=== PATIENT | female | born 1960 | race Caucasian/White ===

== ENCOUNTER 2017-08-20 10:57 | Emergency (ER) | payer OTHER, BC ==
[2017-08-20 11:21] VITALS: RESP 16; TEMP 98.2
[2017-08-20] MEDS ORDERED: ACETAMINOPHEN 500 MG 500 MG TAB PO ONE (11:32)
[2017-08-20] MEDS ORDERED: ACETAMINOPHEN 500 MG 500 MG TAB ONE (11:34)
[2017-08-20] MEDS ORDERED: TDAP VACCINE 0.5 ML SUS IM ONE ×2 (11:54→11:58)
[2017-08-20] MEDS ORDERED: LIDOCAINE HCL 2% MPF SOL SC ONE (12:03)
[2017-08-20] MEDS ORDERED: BACITRACIN 500 U/GM OIN TOP ONE ×2 (12:03→12:04)
[2017-08-20] MEDS ORDERED: LIDOCAINE HCL 2% MPF SOL ONE (12:04)
[2017-08-20 12:55] VITALS: BP 161/89; PULSE 85; O2SAT 96
== END 2017-08-20 12:45 | disposition home or self-care (01) | DRG 605 ==
LOC: ED 10:57
DX: S51.011A Laceration without foreign body of right elbow, initial encounter (principal); R51 Headache; W00.0XXA Fall on same level due to ice and snow, initial encounter
CPT/HCPCS: 90715; 99284

== ENCOUNTER 2018-01-12 08:51 | Day surgery (SDC) | payer BC ==
[~2018-01-12 08:51] MED LIST: PROPOFOL 500 MG/50 ML EMU IV ONE
[2018-01-12 10:08] VITALS: BP 129/80
[2018-01-12 10:30] VITALS: PULSE 79; RESP 18; TEMP 97.4; O2SAT 96
== END 2018-01-12 10:45 | disposition home or self-care (01) ==
LOC: SURG 08:51
PROVIDERS: ATTEND Surgery
DX: Z12.11 Encounter for screening for malignant neoplasm of colon (principal)
CPT/HCPCS: J2704